=== PATIENT | female | born 1950 | race Caucasian/White ===

== ENCOUNTER 2021-12-11 10:56 | Outpatient (CLI) | payer OTHER, MEDICARE ==
[~2021-12-11 10:56] MED LIST: iohexol 300mg/ml 100ml inj. ONE
== END 2021-12-11 23:59 | disposition home or self-care (01) ==
LOC: RAD 10:56
PROVIDERS: ATTEND Internal Medicine
DX: K76.89 Other specified diseases of liver (principal); J90 Pleural effusion, not elsewhere classified; K44.9 Diaphragmatic hernia without obstruction or gangrene; M48.54XA Collapsed vertebra, not elsewhere classified, thoracic region, initial encounter for fracture; M12.88 Other specific arthropathies, not elsewhere classified, other specified site; Z98.890 Other specified postprocedural states; Z93.1 Gastrostomy status
CPT/HCPCS: 74177; J3490; Q9967

== ENCOUNTER 2022-11-19 06:20 | Day surgery (SDC) | payer MEDICARE, OTHER ==
[2022-11-19 08:00] VITALS: BP 100/54
[2022-11-19] MEDS ORDERED: CHLO118L3 TOP (08:18)
[2022-11-19] MEDS ORDERED: OXYC-150 PO (08:18)
[2022-11-19] MEDS ORDERED: LACT-187 PO (08:18)
[2022-11-19] MEDS ORDERED: POLY17PO10 PO (08:18)
[2022-11-19] MEDS ORDERED: ONDA4TAB12 PO (08:18)
[2022-11-19] MEDS ORDERED: iohexol 300 MG/1 ML 50ml polymer ONE (08:18)
[2022-11-19] MEDS ORDERED: MENT7.6L2 PO (08:18)
[2022-11-19] MEDS ORDERED: MULT-1079 PO (08:18)
[2022-11-19] MEDS ORDERED: LACT1TAB21 PO (08:18)
[2022-11-19] MEDS ORDERED: ACET-2119 PO (08:18)
[2022-11-19] MEDS ORDERED: CHOL100025 PO (08:18)
[2022-11-19] MEDS ORDERED: ENOX40SY7 SUBCUT (08:18)
[2022-11-19] MEDS ORDERED: SODI650T29 PO (08:18)
[2022-11-19] MEDS ORDERED: LORA10TA7 PO (08:18)
[2022-11-19] MEDS ORDERED: LIDOcaine 1% 30ml preserv. free vial ONE (08:18)
[2022-11-19] MEDS ORDERED: ASPI-1265 PO (08:18)
[2022-11-19] MEDS ORDERED: MIRT7.5T11 PO (08:18)
[2022-11-19] MEDS ORDERED: FLUT1BLS4 INH (08:18)
[2022-11-19] MEDS ORDERED: PIPE3.3739 IV (08:18)
[2022-11-19] MEDS ORDERED: LIDO5JEL9 TOP (08:18)
[2022-11-19] MEDS ORDERED: BUPR75TA8 PO (08:18)
[2022-11-19] MEDS ORDERED: OMEP20TA23 PO (08:18)
[2022-11-19] MEDS ORDERED: fentaNYL/PF 50MCG/1 ML 2ML syringe ONE (08:50)
== END 2022-11-19 10:37 ==
LOC: SSTAY O 06:20 → PCU 3S 07:41 → SSTAY O 10:37
PROVIDERS: ATTEND Radiology Vascular & Interventional Radiology
DX: Z43.1 Encounter for attention to gastrostomy (principal); Z79.899 Other long term (current) drug therapy
CPT/HCPCS: 49450; B4087; J3010; J3490; Q9967; A4620; A6449; G0378

== ENCOUNTER 2024-02-13 10:56 | Outpatient (CLI) | payer MEDICARE ==
[~2024-02-13 10:56] MED LIST changes: +ACET-2119 PO; +ASPI-1265 PO; +BUPR75TA8 PO; +CHLO118L3 TOP; +CHOL100025 PO; +ENOX40SY7 SUBCUT; +FLUT1BLS4 INH; +LACT-187 PO; +LACT1TAB21 PO; +LIDO5JEL9 TOP; +LORA10TA7 PO; +MENT7.6L8 PO; +MIRT7.5T11 PO; +MULT-1079 PO; +OMEP20TA23 PO; +ONDA-243 PO; +OXYC-150 PO; +PIPE3.3773 IV; +POLY17PO10 PO; +SODI650T29 PO; -iohexol 300mg/ml 100ml inj. ONE
== END 2024-02-13 23:59 | disposition home or self-care (01) ==
LOC: CARD DIAG 10:56
PROVIDERS: ATTEND Internal Medicine
DX: J44.9 Chronic obstructive pulmonary disease, unspecified (principal)
CPT/HCPCS: 93306

== ENCOUNTER 2024-08-16 07:34 | Day surgery (SDC) | payer MEDICARE ==
[~2024-08-16] VITALS: Ht 167.6 cm; Wt 57.7 kg
[~2024-08-16 07:34] MED LIST changes: -ASPI-1265 PO; -CHLO118L3 TOP; -ENOX40SY7 SUBCUT; -FLUT1BLS4 INH; -LACT1TAB21 PO; -LORA10TA7 PO; +MEMA10TA22; -MULT-1079 PO; -ONDA-243 PO; -PIPE3.3773 IV; -POLY17PO10 PO; +RIVA10TA PO; -SODI650T29 PO
[2024-08-16] MEDS ORDERED: TIOTROPIUM (08:00)
[2024-08-16] MEDS ORDERED: BUDE10.22 INH (08:00)
[2024-08-16] MEDS ORDERED: ALBUTEROL (08:00)
[2024-08-16 08:02] VITALS: BP 133/78; PULSE 94; RESP 26
[2024-08-16] MEDS ORDERED: fentaNYL/PF 50MCG/1 ML 2ML syringe ONE (08:27)
[2024-08-16] MEDS ORDERED: MIDAZolam 1 MG/ML 5ML VIAL ONE (08:27)
[2024-08-16] MEDS ORDERED: simethicone 40mg/0.6ml oral drops 30ml ONE (08:33)
[2024-08-16 08:57] VITALS: BP 107/58; PULSE 94; RESP 19; O2SAT 97
[2024-08-16 09:07] VITALS: BP 115/66; PULSE 82; RESP 16; O2SAT 97
[2024-08-16 09:17] VITALS: BP 118/67; PULSE 78; RESP 19; O2SAT 99
[2024-08-16 09:27] VITALS: BP 119/72; PULSE 77; RESP 17; O2SAT 97
== END 2024-08-16 09:37 | disposition home or self-care (01) ==
LOC: GI LAB 07:34
PROVIDERS: ATTEND Internal Medicine Gastroenterology
DX: Z12.11 Encounter for screening for malignant neoplasm of colon (principal); K57.30 Diverticulosis of large intestine without perforation or abscess without bleeding
CPT/HCPCS: 44388; A4620; G0500; J2250; J3010; J7030; Z7512; 44403; 99152